=== PATIENT | female | born 1985 | race African-American/Black ===

== ENCOUNTER 2018-05-05 16:37 | Emergency (ER) | payer OTHER ==
[2018-05-05 16:57] VITALS: BP 134/81; PULSE 85; TEMP 98.2; BMI 22.8
--- NOTE | 2018-05-05 16:59 | PDOC ---
Rapid Medical Evaluation Chief Complaint: Pain Time Seen by Provider: 05/05/18 16:55 Medical Evaluation: Allergies Allergy/AdvReac Type Severity Reaction Status Date / Time No Known Allergies Allergy Verified 05/05/18 16:51 05/05/18 16:56 I have performed a brief in-person evaluation of this patient. The patient presents with a chief complaint of:R knee pain s/p fall. States b/l knees got weak last night causing her to fall onto knees. States pain radiates to R hip. Able to ambulate. No other injuries Pertinent physical exam findings:unremarkable I have ordered the following:knee xray The patient will proceed to the ED for further evaluation Discharge Disposition - Diagnosis Knee pain Qualifiers: Chronicity: acute Laterality: right Qualified Code(s): M25.561 - Pain in right knee - Referrals - Patient Instructions - Post Discharge Activity
[2018-05-05] MEDS ORDERED: KETOROLAC TROMETHAMINE 60 MG/2 ML VIAL IM ONE (17:52)
[2018-05-05] MEDS ORDERED: KETOROLAC TROMETHAMINE 60 MG/2 ML VIAL ONE (17:55)
--- NOTE | 2018-05-05 18:06 | PDOC ---
History of Present Illness - General Chief Complaint: Injury Stated Complaint: FATIGUE/PAIN Time Seen by Provider: 05/05/18 16:55 History Source: Patient Exam Limitations: Clinical Condition - History of Present Illness Initial Comments: 05/05/18 18:00 Patient with no significant past medical history and with complain of right knee or hip pain after falling while trying to use the bathroom upon wake with 2 AM this morning. Patient not sure what happened that caused her to fall but reported she felt weakness in the knees when going to the bathroom. She denied hitting head. Patient reported right posterior knee pain without which increases with bending the knee and improves with straightening the knee. Denies any other symptoms Timing/Duration: other (16hrs ago) Past History - Past Medical History Allergies/Adverse Reactions: Allergies Allergy/AdvReac Type Severity Reaction Status Date / Time No Known Allergies Allergy Verified 05/05/18 16:51 Home Medications: Ambulatory Orders Noreth-Ethinyl Estradiol/Iron [[place] Fe Chewable Tablet] 1 each PO DAILY 05/27 Cyclobenzaprine HCl [Flexeril -] 10 mg PO TID PRN #21 tablet 05/05/18 Leg Brace [Knee Brace] 1 each MC DAILY #1 each 05/05/18 Naproxen [Naprosyn -] 500 mg PO BID PRN #20 tablet 05/05/18 Cardiac Disorders: Yes (PVCS.) COPD: No - Surgical History Abdominal Surgery: Yes - Immunization History Immunization Up to Date: Yes - Suicide/Smoking/Psychosocial Hx Smoking History: Never smoked Have you smoked in the past 12 months: No Hx Alcohol Use: No Drug/Substance Use Hx: No Substance Use Type: None Review of Systems - Review of Systems Able to Perform ROS?: Yes Is the patient limited [place] proficient: No Constitutional: No: Chills, Diaphoresis, Fever, Loss of Appetite, Malaise, Night Sweats, Weakness, Weight Stable, Unintentional Wgt. Loss, Unexplained wgt Loss, Other HEENTM: No: Eye Pain, Blurred Vision, Tearing, Recent change in vision, Double Vision, Cataracts, Ear Pain, Ocular Prothesis, Ear Discharge, Nose Pain, Nose Congestion, Tinnitus, Nose Bleeding, Hearing Loss, Throat Pain, Throat Swelling , Mouth Pain, Dental Problems, Difficulty Swallowing, Mouth Swelling, Other Respiratory: No: Cough, Orthopnea, Shortness of Breath, SOB with Exertion, SOB at Rest, Stridor, Wheezing, Productive cough, Hemoptysis, Other Cardiac (ROS): No: Chest Pain, Edema, Irregular Heart Rate, Lightheadedness, Palpitations, Syncope, Chest Tightness, Other ABD/GI: No: Abdominal Distended, Abd. Pain w/ defecation, Blood Streaked Bowels , Constipated, Diarrhea, Difficulty Swallowing, Nausea, Poor Appetite, Poor Fluid Intake, Rectal Bleeding, Vomiting, Indigestion, Abdominal cramping, Tarry Stools, Other Musculoskeletal: Yes: Joint Pain (b/l knees and right hip), Muscle Pain (back of b/l knees and right thigh area). No: Joint Swelling, Joint Stiffness Integumentary: No: Bruising, Change in Color, Change in Hair/Nails, Dryness, Erythema, Flushing, Lesions, Lumps, Pallor, Pruritus, Rash, Sweating, Other All Other Systems: Reviewed and Negative *Physical Exam - Vital Signs Last Vital Signs Temp Pulse Resp BP Pulse Ox 98.2 F 85 18 134/81 100 05/05/18 16:52 05/05/18 16:52 05/05/18 16:52 05/05/18 16:52 05/05/18 16:52 - Physical Exam Comments: 05/05/18 18:04 GENERAL: Well developed, well nourished. Awake and alert. No acute distress. HEENT: Normocephalic, atraumatic. PERRLA, EOMI. No conjunctival pallor. Sclera are non- icteric. Moist mucous membranes. Oropharynx is clear. NECK: Supple. Full ROM. No JVD. Carotid pulses 2+ and symmetric, without bruits. No thyromegaly. No lymphadenopathy. CARDIOVASCULAR: Regular rate and rhythm. No murmurs, rubs, or gallops. Distal pulses are 2+ and symmetric. PULMONARY: No evidence of respiratory distress. Lungs clear to auscultation bilaterally. No wheezing, rales or rhonchi. ABDOMINAL: Soft. Non-tender. Non-distended. No rebound or guarding. No organomegaly. Normoactive bowel sounds. MUSCULOSKELETAL : mild tenderness over right popliteal fossa of right knee which is worse with flexion of right knee. mild tenderness over ASIS of right hip and lateral side of right thigh area. pain worse to hip with elevation of right LE. Normal range of motion at all other joints. No bony deformities or tenderness. No CVA tenderness. EXTREMITIES: No cyanosis. No clubbing. No edema. No calf tenderness. SKIN: Warm and dry. Normal capillary refill. No rashes. No jaundice. NEUROLOGICAL: Alert, awake, appropriate. Cranial nerves 2-12 intact. No deficits to light touch and temperature in face, upper extremities and lower extremities. No motor deficits in the in face, upper extremities and lower extremities. Normoreflexic in the upper and lower extremities. Normal speech. Toes are down- going bilaterally. Gait is normal without ataxia. PSYCHIATRIC: Cooperative. Good eye contact. Appropriate mood and affect. General Appearance: Yes: Nourished, Appropriately Dressed, Mild Distress Medical Decision Making - Medical Decision Making 05/05/18 18:06 Patient presenting with complain of right hip and knee pain status post fall while going to the bathroom upon with wake. Symptoms likely sprained due to weakness in the leg from sleeping. X-ray of right knee shows no acute fracture or dislocation. Patient will be discharged home on NSAIDs with knee brace with orthopedics follow-up. Toradol 60mg IM given for pain 05/05/18 18:08 *DC/Admit/Observation/Transfer Diagnosis at time of Disposition: Knee pain Qualifiers: Chronicity: acute Laterality: right Qualified Code(s): M25.561 - Pain in right knee Right knee sprain Qualifiers: Encounter type: initial encounter Involved ligament of knee: unspecified ligament Qualified Code(s): S83.91XA - Sprain of unspecified site of right knee , initial encounter - Discharge Dispostion Disposition: HOME Condition at time of disposition: Stable Decision to Admit order: No - Prescriptions Prescriptions: Cyclobenzaprine HCl [Flexeril -] 10 mg PO TID PRN #21 tablet PRN Reason: Muscle Spasm Leg Brace [Knee Brace] 1 each MC DAILY #1 each Naproxen [Naprosyn -] 500 mg PO BID PRN #20 tablet PRN Reason: Pain - Referrals Referrals: Roman Arango MD [Staff Physician] - - Patient Instructions Printed Discharge Instructions: How to Prevent Falls Additional Instructions: take medications as prescribed as needed for pain. keep stephanie wrap on knee until symptoms improves. wear prescribed knee brace until symptoms improves. follow- up with orthopedics if symptoms persist for more than 5 days - Post Discharge Activity Forms/Work/School Notes: Back to Work
== END 2018-05-05 18:47 | disposition home or self-care (01) ==
LOC: JERFT 16:37
PROC: 2W3QXYZ Immobilization of Right Lower Leg using Other Device (ICD-10-PCS; principal; 2018-05-05)
DX: S83.8X1A Sprain of other specified parts of right knee, initial encounter (principal); W18.39XA Other fall on same level, initial encounter; Y93.01 Activity, walking, marching and hiking; Y92.031 Bathroom in apartment as the place of occurrence of the external cause; Y99.8 Other external cause status
CPT/HCPCS: 73562-TC-RT-FY; 99281-25

== ENCOUNTER 2019-08-03 20:46 | Emergency (ER) | payer OTHER ==
[2019-08-03 20:51] VITALS: BP 128/84; PULSE 91; TEMP 98.8; BMI 24.9
[2019-08-03] MEDS ORDERED: ACETAMINOPHEN 500 MG TABLET (FP) PO ONE (22:10)
--- NOTE | 2019-08-03 22:11 | PDOC ---
History of Present Illness - General Chief Complaint: Cold Symptoms Stated Complaint: COLD SYMPTOM Time Seen by Provider: 08/03/19 21:26 History Source: Patient Exam Limitations: No Limitations - History of Present Illness Initial Comments: 08/03/19 22:07 HISTORY OF PRESENT ILLNESS: Is a 34-year-old otherwise healthy woman presents emergency department 2 days of nasal congestion, sore throat, moist cough. Patient denies fever. Patient reports her cough is productive with green sputum. She is taken Tylenol and Motrin which helped mildly with symptoms. Patient has tried some over [id number] remedies for nasal congestion and cough which have been helping her symptoms. No recent travel or sick contacts. PAST MEDICAL HISTORY: Denies past medical history SURGICAL HISTORY: Denies ALLERGIES: No known drug allergies REVIEW OF SYSTEMS General/Constitutional: Denies fever. Denies weakness, weight change. HEENT: Denies change in vision. Denies ear pain or discharge. +sore throat. Cardiovascular: Denies chest pain or shortness of breath. Respiratory: Moist productive cough. Denies wheezing, or hemoptysis. Gastrointestinal: Denies nausea, vomiting, diarrhea or constipation. Denies rectal bleeding. Genitourinary: Denies dysuria, frequency, or change in urination. Musculoskeletal: +myalgias. Denies neck or back pain. Skin and breasts: Denies rash or easy bruising. Neurologic: Denies headache, vertigo, loss of consciousness, or loss of sensation. Psychiatric: Denies depression or anxiety. Endocrine: Denies increased thirst. Denies abnormal weight change. Hematologic/Lymphatic: Denies anemia, easy bleeding, or history of blood clots. Allergic/Immunologic: Denies hives or skin allergy. Denies latex allergy. PHYSICAL EXAM General Appearance: Well-appearing, appropriately dressed. No apparent distress , no intoxication. HEENT: EOMI, PERRLA, normal voice, TMs retracted bilaterally. No conjunctival pallor. No photophobia, scleral icterus. Oropharynx mildly erythematous without lesions or exudate. Cobblestoning noted in the posterior. No nasal discharge present. Neck: Supple. Trachea midline. No tenderness, rigidity, carotid bruit, stridor , or thyromegaly. Nontender anterior cervical lymphadenopathy present. Respiratory/Chest: Lungs CTAB. No shortness of breath, chest tenderness, respiratory distress, accessory muscle use. No crackles, rales, rhonchi, stridor , wheezing, dullness Cardiovascular: RRR. S1, S2. No JVD, murmur, bradycardia, tachycardia. Vascular Pulses: Dorsalis-Pedis (R): 2+, Dorsalis-Pedis (L): 2+ Gastrointestinal/Abdominal: Normal bowel sounds. Abdomen soft, non-distended. No tenderness or rebound tenderness. No organomegaly, pulsatile mass, guarding, hernia, hepatomegaly, splenomegaly. Musculoskeletal/Extremities: Normal inspection. FROM of all extremities, normal capillary refill. Pelvis Stable. No CVA tenderness. No tenderness to extremities, pedal edema, swelling, erythema or deformity. Integumentary: Appropriate color, dry, warm. 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 Fully oriented, alert. Appropriate mood/affect. Motor strength 5/5. No appreciable EOM palsy, facial droop or sensory deficit. 08/03/19 22:10 Past History - Past Medical History Allergies/Adverse Reactions: Allergies Allergy/AdvReac Type Severity Reaction Status Date / Time No Known Allergies Allergy Verified 08/03/19 20:51 Home Medications: Ambulatory Orders Noreth-Ethinyl Estradiol/Iron [[place] Fe Chewable Tablet] 1 each PO DAILY 05/27 Cyclobenzaprine HCl [Flexeril -] 10 mg PO TID PRN #21 tablet 05/05/18 Leg Brace [Knee Brace] 1 each MC DAILY #1 each 05/05/18 Naproxen [Naprosyn -] 500 mg PO BID PRN #20 tablet 05/05/18 Azithromycin [Zithromax 250mg Tablets -] 250 mg PO DAILY #4 tab 02/07/19 Azithromycin [Zithromax Tri-Myles (3 DAYS) -] 500 mg PO DAILY #3 tablet 02/07/19 Azithromycin [Zithromax] 500 mg PO ONCE #1 tablet 02/07/19 Cardiac Disorders: Yes (PVCS.) COPD: No - Surgical History Abdominal Surgery: Yes - Immunization History Immunization Up to Date: Yes - Psycho Social/Smoking Cessation Hx Smoking History: Never smoked Have you smoked in the past 12 months: No Information on smoking cessation initiated: No Hx Alcohol Use: No Drug/Substance Use Hx: No Substance Use Type: None *Physical Exam - Vital Signs Last Vital Signs Temp Pulse Resp BP Pulse Ox 98.8 F 91 H 17 128/84 100 08/03/19 20:48 08/03/19 20:48 08/03/19 20:48 08/03/19 20:48 08/03/19 20:48 Medical Decision Making - Medical Decision Making 08/03/19 22:11 A/P: 34-year-old woman with influenza-like illness Influenza testing Tylenol 1 g Reassess 08/03/19 22:44 Influenza testing is negative. We will discharge patient home to follow with the primary doctor as needed. Supportive treatment has been discussed with the patient was verbalized understanding of discharge instructions. Discharge - Discharge Information Problems reviewed: Yes Clinical Impression/Diagnosis: URI (upper respiratory infection) Qualifiers: URI type: unspecified viral URI Qualified Code(s): J06.9 - Acute upper respiratory infection, unspecified Condition: Stable Disposition: HOME - Admission No - Follow up/Referral - Patient Discharge Instructions Patient Printed Discharge Instructions: DI for Viral Upper Respiratory Infection -- Adult Additional Instructions: Rest, drink lots of fluids: Teas, water, soups, Pedialyte Saltwater gargles Steamy showers/seem to face break up mucus Avoid contact with others until fevers and cough resolved Lots of handwashing and good hygiene Continue [id number] medications for symptomatic relief Tylenol or Motrin for fever and pain Followup with private physician in one to 2 days as needed Return to emergency department for worsened symptoms, fevers, dehydration - Post Discharge Activity
[2019-08-03] MEDS ORDERED: ACETAMINOPHEN 325 MG TABLET (FP) ONE (22:28)
== END 2019-08-03 22:50 | disposition home or self-care (01) ==
LOC: JERFT 20:46
DX: J06.9 Acute upper respiratory infection, unspecified (principal); B97.89 Other viral agents as the cause of diseases classified elsewhere
CPT/HCPCS: 87804; 99282-25

== ENCOUNTER 2022-08-03 21:22 | Emergency (ER) | payer OTHER ==
[2022-08-03 21:33] VITALS: BP 113/72; PULSE 71; RESP 19; TEMP 97.9; BMI 23.1
[2022-08-03] MEDS ORDERED: IBUPROFEN 600 MG TABLET (FP) PO ONE ×2 (22:49→22:50)
[2022-08-03] MEDS ORDERED: CYCLOBENZAPRINE HCL 10 MG TABLET (FP) PO ONE (22:49)
[2022-08-03] MEDS ORDERED: CYCLOBENZAPRINE HCL 10 MG TABLET (FP) ONE (22:50)
== END 2022-08-03 23:39 | disposition home or self-care (01) ==
LOC: JERFT 21:22
DX: S16.1XXA Strain of muscle, fascia and tendon at neck level, initial encounter (principal); G56.80 Other specified mononeuropathies of unspecified upper limb; X50.9XXA Other and unspecified overexertion or strenuous movements or postures, initial encounter
CPT/HCPCS: 99283-25